=== PATIENT | male | born 1970 | race Two or more races ===

== ENCOUNTER → 2022-10-17 | Emergency (ER) | payer OTHER ==
[~2022-10-17] VITALS: Ht 160 cm; Wt 86.2 kg
[~2022-10-17] MED LIST: FENOFIBRATE150 MG PO; LOSARTAN POTASS50 MG PO
== END | disposition home or self-care (01) ==
LOC: ER 01:02
DX: S68.120A Partial traumatic metacarpophalangeal amputation of right index finger, initial encounter (principal); X58.XXXA Exposure to other specified factors, initial encounter; Y93.89 Activity, other specified; Y92.89 Other specified places as the place of occurrence of the external cause; Y99.8 Other external cause status; I10 Essential (primary) hypertension

== ENCOUNTER 2023-07-05 11:26 | Inpatient (IN) | payer OTHER ==
[~2023-07-05] VITALS: Ht 154.9 cm; Wt 102.1 kg
[2023-07-05] MEDS ORDERED: RINGERS SOLUTION,LACTATED 1,000 ML IV STA (13:58)
[2023-07-05] MEDS ORDERED: MEPERIDINE HCL/PF 50 MG/ML VIAL IM STA (14:00)
[2023-07-05 14:43] LABS: HEMOGLOBIN 16.4 g/dL (13-16.00); MEAN CELL VOLUME 87.7 fL (80.0-100.00); MEAN CORPUSCULAR HGB CONC 34.1 g/dl (32.0-36.0); PLATELET COUNT 190 K/uL (150-450); RED BLOOD COUNT 5.47 M/uL (4.00-6.00); RED CELL DISTRIBUTION WIDTH 14.2 % (11.5-14.5)
[2023-07-05 15:15] LABS: BILIRUBIN TOTAL 1.09 mg/dL (0.3-1.2); BILIRUBIN,CONJUGATED 0.29 mg/dL (0.0-0.2); BILIRUBIN,UNCONJUGATED 0.8 mg/dL (0.0-0.6); CALCIUM 9.7 mg/dL (8.5-10.1); CREATININE SERUM 0.97 mg/dL (0.70-1.30); GFR 80.65; POTASSIUM 3.59 mEq/L (3.5-5.1); TOTAL PROTEIN 7.9 gm/dL (6.4-8.2)
[2023-07-05 15:17] LABS: PH,URINE 7.5 (5.0-8.0); URINE APPEARANCE Clear; URINE BILIRRUBIN Negative (NEGATIVE); URINE BLOOD Negative; URINE COLOR Yellow; URINE GLUCOSE Negative (NEGATIVE); URINE LEUKOCYTE Negative; URINE NITRATE Negative; URINE PROTEIN Trace (NEGATIVE); URINE UROBILINOGEN 0.2 E.U./dl
[2023-07-05 15:21] LABS: URINE BACTERIA 8.8 uL (0.0-1933); URINE EPITHELIAL CELLS 1.6 uL (0.0-38.8); URINE RBC 15.3 uL (0.0-20.8)
[2023-07-05 15:30] LABS: INR 0.97; PARTIAL THROMBOPLASTIN TIME 24.1 SECONDS (22.0-34.0); PROTHROMBIN TIME 10.2 SECONDS (9.0-11.5)
[2023-07-05 15:37] LABS: URINE WBC 1.5 uL (0.0-23.2)
[2023-07-05] MEDS ORDERED: ACETAMINOPHEN 500 MG GEL..CAP PO PRN (18:30)
[2023-07-05] MEDS ORDERED: 0.9 % SODIUM CHLORIDE 1,000 ML IV SCH ×2 (18:30→23:30)
[2023-07-05] MEDS ORDERED: PIPERACILLIN/TAZOBACTAM SODIUM 3.375 GM in 0.9 % SODIUM CHLORIDE 100 ML IV SCH (18:30)
[2023-07-05] MEDS ORDERED: MEPERIDINE HCL/PF 25 MG/ML VIAL IM PRN (18:45)
[2023-07-05] MEDS ORDERED: ONDANSETRON HCL 4 MG in 0.9 % SODIUM CHLORIDE 50 ML IV PRN (18:45)
[2023-07-05] MEDS ORDERED: BUPIVACAINE HCL/PF 0.5% 30ML ML ONE (20:15)
[2023-07-05] MEDS ORDERED: KETOROLAC TROMETHAMINE 30 MG VIAL IV PRN (23:30)
[2023-07-05] MEDS ORDERED: ONDANSETRON HCL 2 MG/ML VIAL IV PRN (23:30)
[2023-07-06] MEDS ORDERED: PIPERACILLIN/TAZOBACTAM SODIUM 3.375 GM VIAL IV ONE (01:14)
[2023-07-06 06:49] LABS: CALCIUM 8.6 mg/dL (8.5-10.1); CREATININE SERUM 0.94 mg/dL (0.70-1.30); GFR 83.63; POTASSIUM 4.15 mEq/L (3.5-5.1)
[2023-07-06] MEDS ORDERED: SIMETHICONE 125 MG CAPSULE PO SCH (09:00)
[2023-07-06] MEDS ORDERED: SUCRALFATE 1 G TABLET PO SCH (09:00)
[2023-07-06] MEDS ORDERED: LOSARTAN POTASSIUM 25 MG TABLET PO SCH (09:00)
[2023-07-06] MEDS ORDERED: LACTOBACILLUS ACIDOPHILUS 1 CAP CAP PO SCH (09:00)
[2023-07-06] MEDS ORDERED: FAMOTIDINE/PF 20 MG in 0.9 % SODIUM CHLORIDE 8 ML IV PUSH SCH ×2 (09:00→21:00)
[2023-07-07 05:29] LABS: HEMATOCRIT 42.7 % (39.0-48.0); HEMOGLOBIN 14.8 g/dL (13-16.00); MEAN CELL VOLUME 88.4 fL (80.0-100.00); MEAN CORPUSCULAR HEMOGLOBIN 30.7 pg (27.00-32.0); MEAN CORPUSCULAR HGB CONC 34.7 g/dl (32.0-36.0); PLATELET COUNT 200 K/uL (150-450); RED BLOOD COUNT 4.83 M/uL (4.00-6.00); RED CELL DISTRIBUTION WIDTH 14.6 % (11.5-14.5)
[2023-07-08] MEDS ORDERED: PIPERACILLIN/TAZOBACTAM SODIUM 4.5 GM in 0.9 % SODIUM CHLORIDE 100 ML IV SCH (12:00)
[2023-07-09 06:47] LABS: HEMATOCRIT 37.9 % (39.0-48.0); MEAN CELL VOLUME 87.1 fL (80.0-100.00); MEAN CORPUSCULAR HEMOGLOBIN 29.8 pg (27.00-32.0); MEAN CORPUSCULAR HGB CONC 34.2 g/dl (32.0-36.0); PLATELET COUNT 208 K/uL (150-450); RED BLOOD COUNT 4.35 M/uL (4.00-6.00); RED CELL DISTRIBUTION WIDTH 14.1 % (11.5-14.5)
[2023-07-09] MEDS ORDERED: FAMOTIDINE/PF 20 MG/2 ML VIAL ONE ×2 (06:49→15:09)
[2023-07-10] MEDS ORDERED: FAMOTIDINE/PF 20 MG/2 ML VIAL ONE (06:36)
== END 2023-07-11 14:01 | disposition home or self-care (01) | DRG 397 ==
LOC: ER 11:26 → SEC-K 19:05 → SURH 19:05 → O/R 19:05 → SURH 21:15
PROVIDERS: General Practice; Internal Medicine Infectious Disease; Surgery; ADMIT Internal Medicine; ATTEND Internal Medicine
PROC: 0DTJ4ZZ Resection of Appendix, Percutaneous Endoscopic Approach (ICD-10-PCS; principal; 2023-07-05 21:00)
DX: K35.80 Unspecified acute appendicitis (principal); A41.9 Sepsis, unspecified organism; K35.31 Acute appendicitis with localized peritonitis and gangrene, without perforation